=== PATIENT | female | born 1995 | race Caucasian/White ===

== ENCOUNTER 2017-02-08 00:23 | Emergency (ER) | payer OTHER | END 2017-02-08 07:14 | disposition home or self-care (01) | LOC: ER1 00:23 | DX: T19.2XXA Foreign body in vulva and vagina, initial encounter (principal); N89.8 Other specified noninflammatory disorders of vagina; R10.819 Abdominal tenderness, unspecified site; Z88.5 Allergy status to narcotic agent; Z91.040 Latex allergy status | CPT/HCPCS: 87210; 99283 ==

== ENCOUNTER 2021-04-09 18:45 | Outpatient (CLI) | payer OTHER ==
[~2021-04-09 18:45] MED LIST: ALLEGRA ALLERGY60 MG PO; EXPECTORANT200 MG PO; FLONASE 0.05% N16 GM; IBUPROFEN600 MG PO; MACROBID 100 M100 MG PO; OMNICEF 300 MG300 MG PO; PRENATAL VITAM1 EAC6 PO; ZOFRAN ODT 4 MG4 MG SL; ZOLOFT50 MG PO
== END 2021-04-09 21:07 | disposition home or self-care (01) ==
LOC: GENOP 18:45
DX: O36.8190 Decreased fetal movements, unspecified trimester, not applicable or unspecified (principal); O62.9 Abnormality of forces of labor, unspecified; Z3A.00 Weeks of gestation of pregnancy not specified
CPT/HCPCS: 59025; 81001; 82731

== ENCOUNTER 2021-04-23 17:16 | Outpatient (CLI) | payer OTHER | END 2021-04-23 23:58 | disposition other institution (70) | LOC: GENOP 17:16 | DX: O60.03 Preterm labor without delivery, third trimester (principal); O99.891 Other specified diseases and conditions complicating pregnancy; R10.30 Lower abdominal pain, unspecified; Z91.040 Latex allergy status; Z3A.34 34 weeks gestation of pregnancy | CPT/HCPCS: 81001; J3475 ==

== ENCOUNTER 2021-04-29 11:44 | Outpatient (CLI) | payer OTHER | END 2021-04-29 14:00 | disposition home or self-care (01) | LOC: GENOP 11:44 → EDSTATUS 11:44 → GENOP 14:00 | DX: O47.03 False labor before 37 completed weeks of gestation, third trimester (principal); O99.343 Other mental disorders complicating pregnancy, third trimester; F32.9 Major depressive disorder, single episode, unspecified; Z87.440 Personal history of urinary (tract) infections; Z98.890 Other specified postprocedural states; Z91.040 Latex allergy status; Z88.8 Allergy status to other drugs, medicaments and biological substances; Z79.899 Other long term (current) drug therapy; Z3A.35 35 weeks gestation of pregnancy | CPT/HCPCS: 81001; G0463 ==

== ENCOUNTER 2021-05-11 22:06 | Outpatient (CLI) | payer OTHER | END 2021-05-12 00:51 | disposition home or self-care (01) | LOC: GENOP 22:06 | DX: O47.03 False labor before 37 completed weeks of gestation, third trimester (principal); O99.343 Other mental disorders complicating pregnancy, third trimester; F32.9 Major depressive disorder, single episode, unspecified; Z91.040 Latex allergy status; Z88.8 Allergy status to other drugs, medicaments and biological substances; Z79.899 Other long term (current) drug therapy; Z3A.36 36 weeks gestation of pregnancy | CPT/HCPCS: 96360; 96361; J7121 ==

== ENCOUNTER 2021-05-18 22:45 | Inpatient (IN) | payer OTHER ==
[~2021-05-18] VITALS: Ht 170.2 cm; Wt 85.3 kg
[2021-05-18 23:38] LABS: HEMOGLOBIN 12.9 gm/dl (12.3-15.3); RED BLOOD COUNT 4.03 M/UL (4.00-5.10); WHITE BLOOD COUNT 10.3 K/UL (4.5-11.0)
[2021-05-19] MEDS ORDERED: FEROSUL325 MG PO (10:48)
[2021-05-19] MEDS ORDERED: DOCUSATE SODIU250 MG PO (10:48)
[2021-05-19] MEDS ORDERED: IBUPROFEN600 MG PO (10:48)
== END 2021-05-20 16:38 | disposition home or self-care (01) | DRG 806 ==
LOC: GENOP 22:45 → OB 05-19 01:14
PROVIDERS: Obstetrics & Gynecology; ADMIT Obstetrics & Gynecology
PROC: 10E0XZZ Delivery of Products of Conception, External Approach (ICD-10-PCS; principal; 2021-05-19)
PROC: 3E0234Z Introduction of Serum, Toxoid and Vaccine into Muscle, Percutaneous Approach (ICD-10-PCS; 2021-05-20)
DX: O69.81X0 Labor and delivery complicated by cord around neck, without compression, not applicable or unspecified (principal); O36.0930 Maternal care for other rhesus isoimmunization, third trimester, not applicable or unspecified; Z37.0 Single live birth; O23.42 Unspecified infection of urinary tract in pregnancy, second trimester; O99.824 Streptococcus B carrier state complicating childbirth; Z3A.37 37 weeks gestation of pregnancy; Z23 Encounter for immunization
CPT/HCPCS: 36415; 82800; 83518; 85014; 85018; 85025; 86900; 86901; 90715; J2210; J2405; J2590; J2795; J7120; U0002

== ENCOUNTER 2021-10-25 19:43 | Emergency (ER) | payer OTHER ==
[~2021-10-25 19:43] MED LIST changes: +DOCUSATE SODIU250 MG PO; +FEROSUL325 MG PO
[2021-10-25 20:37] LABS: HEMOGLOBIN 15.7 gm/dl (12.3-15.3); RED BLOOD COUNT 5.02 M/UL (4.00-5.10); WHITE BLOOD COUNT 6.5 K/UL (4.5-11.0)
[2021-10-25 21:49] LABS: BUN/CREATININE RATIO 21 (0-10)
[2021-10-26] MEDS ORDERED: NAPROXEN500 MG PO (01:17)
[2021-10-26] MEDS ORDERED: ZOFRAN4 MG PO (01:17)
[2021-10-26] MEDS ORDERED: DOXYCYCLINE HY100 M2 PO (01:17)
[2021-10-27 21:09] LABS: CHLAMYDIA TRACHOMATIS, NAA Negative (Negative); NEISSERIA GONORRHOEAE, NAA Negative (Negative)
== END 2021-10-26 01:35 | disposition home or self-care (01) ==
LOC: ER1 19:43
PROVIDERS: Nurse Practitioner; Physician Assistant Medical
DX: T83.84XA Pain due to genitourinary prosthetic devices, implants and grafts, initial encounter (principal); R10.2 Pelvic and perineal pain; R10.9 Unspecified abdominal pain; Z20.822 Contact with and (suspected) exposure to COVID-19; R10.813 Right lower quadrant abdominal tenderness; Z88.5 Allergy status to narcotic agent; Z88.8 Allergy status to other drugs, medicaments and biological substances; R10.814 Left lower quadrant abdominal tenderness; Y83.9 Surgical procedure, unspecified as the cause of abnormal reaction of the patient, or of later complication, without mention of misadventure at the time of the procedure
CPT/HCPCS: 80053; 81001; 84703; 85025; 86850; 86900; 86901; 87040; 87086; 87210; 96374; 96375; 99284; J1170; J1200; J2270; J2405; Q9967; U0002